=== PATIENT | female | born 1995 | race Caucasian/White ===

== ENCOUNTER 2016-07-26 14:02 | Emergency (ER) | payer OTHER ==
[~2016-07-26] VITALS: Ht 154.9 cm; Wt 84.4 kg
[2016-07-26 14:04] VITALS: BP 126/75
== END 2016-07-26 15:56 | disposition home or self-care (01) ==
LOC: ED 14:02
DX: L60.0 Ingrowing nail (principal); G89.29 Other chronic pain; M54.6 Pain in thoracic spine
CPT/HCPCS: 90715; J2001

== ENCOUNTER 2017-03-03 23:30 | Emergency (ER) | payer OTHER | END 2017-03-04 00:31 | disposition left against medical advice (07) | LOC: ED 23:30 | DX: Z53.21 Procedure and treatment not carried out due to patient leaving prior to being seen by health care provider (principal) ==

== ENCOUNTER 2018-11-28 08:53 | Emergency (ER) | payer MEDICAID ==
[~2018-11-28] VITALS: Ht 154.9 cm; Wt 89.8 kg
[2018-11-28 09:07] VITALS: BP 111/74; Ht 154.9 cm; Wt 89.8 kg
== END 2018-11-28 10:41 | disposition home or self-care (01) ==
LOC: ED 08:53
DX: L30.0 Nummular dermatitis (principal)